=== PATIENT | male | born 1970 ===

== ENCOUNTER 2018-06-21 22:21 | Inpatient (IN) | payer OTHER ==
[~2018-06-21 22:21] MED LIST: ISOVUE-370 76%-LOCM 1 ML ONE
[2018-06-21] MEDS ORDERED: cefTRIAXone\\ROCEPHIN 2 GM VIAL ONE (23:16)
[2018-06-21] MEDS ORDERED: Morphine 4 MG/ML VIAL ONE (23:17)
[2018-06-21 23:44] LABS: #Eosinphils 0.2 thou/uL (0.0-0.7); #Lymphocytes 1.6 thou/uL (1.20-3.40); #Neutrophils 5.2 thou/uL (1.40-6.50); %Basophils 0.4 % (0.0-1.0); %Eosinophils 2.1 % (0.0-10.0); %Lymphocytes 19.7 % (21.0-51.0); %Monocytes 12.6 % (0.0-10.0); %Neutrophils 65.2 % (42.0-75.0); Hemoglobin 14.1 g/dL (14.0-18.0); Mean Corpuscular HGB CONC 34.2 g/dL (32.0-36.0); Mean Corpuscular Hemoglobin 31.8 pg (27.0-31.0); Mean Corpuscular Volume 92.8 fL (78.0-98.0); Mean Platelet Volume 7.6 fL (7.4-10.4); Platelet Count 235 thou/uL (130-400); RBC Distribution Width 11.2 % (11.5-14.5); Red Blood Cell (RBC) Count 4.45 mill/uL (4.70-6.10)
--- NOTE | 2018-06-22 00:04 | CT ---
CT LEFT LEG WITH IV CONTRAST 06/21/18 HISTORY: Left leg pain. Fever. Abscess. FINDINGS: No comparison. Osseous structures are within normal limits. Arterial structures intact without acute hemorrhage. Brandin ng the medial aspect of the upper left thigh, at and just below the level of the scrotum, a small she et-like very thin fluid collection lies immediately superficial to the adductor musculature. It exten ds over a length of 6.1 cm. It measures up to 5.7 cm in width and 1.0 cm in depth. A few very small p ockets of gas are present. The underlying muscles are not involved. IMPRESSION: Very thin sheet-like collection of fluid and tiny pockets of gas along the medial aspect of the upper left thigh. This may represent a resolving area of abscess. No tense fluid collection is remaining. No evidence of involvement of the underlying musculature. POS: [facility]
[2018-06-22 00:05] LABS: ALT (SGPT) 11 U/L (8-55); AST (SGOT) 9 U/L (5-34); Albumin 3.8 g/dL (3.5-5.0); Alkaline Phosphatase 97 U/L (40-150); Anion Gap 18 mmol/L (10-20); BUN (Urea Nitrogen) 13 mg/dL (8.9-20.6); Bilirubin, Total 1.2 mg/dL (0.2-1.2); Calc. Creatinine Clearance 0 mL/min (70-130); Calcium 9.2 mg/dL (7.8-10.44); Carbon Dioxide 16 mmol/L (22-29); Chloride 106 mmol/L (98-107); Estimated GFR-MDRD 84; Globulin 3.1 g/dL (2.4-3.5); Glucose 278 mg/dL (70-105); Protein, Total 6.9 g/dL (6.0-8.3); Sodium 136 mmol/L (136-145)
[2018-06-22 00:42] LABS: Bilirubin Negative (Negative); Blood, Urine Negative (Negative); Clarity CLEAR (Clear); Glucose, Urine (Dipstick) >=1000 mg/dL (Negative); Leukocyte Negative (Negative); Nitrite Negative (Negative); Protein, Urine (Dipstick) 30 mg/dL (Neg-Trace); Urobilinogen 0.2 mg/dL (0.2-1.0); pH, Urine 5.5 (5.0-9.0)
[2018-06-22 00:45] LABS: Bacteria/HPF None Seen HPF (None Seen); Hyaline Casts/LPF 0-3 HYALINE CAST LPF (0-3 Hyaline); Pathc Cast-AUWi Flag 0.14 (0-2.49); Squamous Epithelial None Seen HPF (0-3); WBC/HPF None Seen HPF (0-3)
[2018-06-22 00:58] LABS: Specific Gravity, Urine 1.046 (1.002-1.036)
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
[2018-06-22] MEDS ORDERED: Fentanyl 100 MCG/2 ML VIAL ONE ×3 (03:58→05:31)
[2018-06-22] MEDS ORDERED: Midazolam HCl 2 mg/2 ml Vial ONE (03:58)
[2018-06-22] MEDS ORDERED: hydrALAZINE 20 MG/ML VIAL SLOW IVP PRN (05:03)
[2018-06-22] MEDS ORDERED: Dextrose 50% Abboject 50 ML SYRINGE SLOW IVP PRN (05:03)
[2018-06-22] MEDS ORDERED: Morphine 4 MG/ML Carpuject SLOW IVP PRN (05:03)
[2018-06-22] MEDS ORDERED: Dextrose 5% in Water 1,000 ML IV PRN (05:03)
[2018-06-22] MEDS ORDERED: Promethazine HCl 25 MG/ML VIAL IM PRN ×2 (05:03→05:13)
[2018-06-22] MEDS ORDERED: Ondansetron HCl/PF 4 MG/2 ML Vial IVP PRN ×2 (05:03→05:13)
[2018-06-22] MEDS ORDERED: HYDROcodone/Acetaminophen 10/325 mg Tablet PO PRN (05:03)
[2018-06-22] MEDS ORDERED: Promethazine HCl 25 MG/ML VIAL SLOW IVP PRN (05:13)
--- NOTE | 2018-06-22 05:21 | OP ---
PREOPERATIVE DIAGNOSIS: Abscess, upper and inner left thigh. SURGEON: Balbir Do MD PROCEDURE PERFORMED: Wide debridement, incision and drainage. INDICATIONS: This is a 48-year-old male with a 5-day history of rapidly progressive infection of the upper and inner left thigh. He has been on antibiotics for a couple of days. Continue to progress. FINDINGS: Necrotizing fasciitis with a 15 x 6 x 3 cm area of debrided skin, subcutaneous, and fascia from the upper and inner left thigh just inferior or distal to the groin crease. PROCEDURE IN DETAIL: After informed consent was obtained, the patient was taken to the operating mario m and given general endotracheal anesthesia. He was placed in the supine frogleg position. His groi n and upper leg were prepped and draped in usual fashion. An elliptical incision was performed to ex cise fluctuant area including an open area in the posterior aspect of the upper inner thigh. This wa s a 15 x 6 x 3 cm excision of subcutaneous, skin, and fascia. There were multiple pockets of purulen t fluid which was sent for culture. The necrotic fascia was excised. Hemostasis achieved utilizing electrocautery and [id number] of 3-0 Vicryl suture. The wound was irrigated with pulse irrigat or and 3 liters of saline. Hemostasis was assured. The wound was packed open with Betadine gauze, c overed with sterile dry gauze. Patient tolerated the procedure well and was transferred to recovery in fair condition.
[2018-06-22 06:41] VITALS: BMI 29.9
[2018-06-22] MEDS: Piperacillin/Tazobactam 3.375 GM in Sodium Chloride 0.9% 100 ML IVPB SCH ×4 (06:59→23:44)
[2018-06-22 07:01] LABS: Vancomycin, Peak 5.7 ug/mL (20.0-40.0)
[2018-06-22] MEDS: Ketorolac Tromethamine 30 MG/ML VIAL IVP SCH ×4 (07:05→23:45)
[2018-06-22] MEDS: Lactated Ringer's 1,000 ML IV SCH ×2 (07:06→16:24)
[2018-06-22] MEDS: HYDROcodone/Acetaminophen 10/325 mg Tablet PO PRN ×3 (07:11→19:42)
[2018-06-22] MEDS: Famotidine/PF 20 mg/2ml Vial SLOW IVP SCH ×2 (08:29→19:43)
[2018-06-22] MEDS: Vancomycin HCl 1.5 GM in Sodium Chloride 0.9% 250 ML 300 ML IVPB SCH ×2 (08:29→16:24)
[2018-06-22] MEDS ORDERED: Heparin 1,000 UNITS/ML VIAL ONE (09:00)
[2018-06-22] MEDS: Insulin Regular 300 UNITS/3 ML VIAL SC PRN ×3 (13:23→20:51)
[2018-06-22] MEDS ORDERED: PROPOFOL 200 MG/20 ML VIAL ONE (15:14)
[2018-06-22] MEDS ORDERED: Lidocaine 1% PF 5 ML VIAL ONE (15:14)
[2018-06-22] MEDS ORDERED: Succinylcholine Chloride 20 MG/ML 10 ml SYRINGE FS ONE (15:14)
[2018-06-22 23:22] LABS: Vancomycin, Trough 10.5 ug/mL
[2018-06-22] MEDS: Vancomycin HCl 1.75 GM in Sodium Chloride 0.9% 500 ML IVPB SCH (23:45)
[2018-06-23] MEDS: Lactated Ringer's 1,000 ML IV SCH ×3 (00:43→15:24)
[2018-06-23 04:13] LABS: #Eosinphils 0.6 thou/uL (0.0-0.7); #Lymphocytes 1.6 thou/uL (1.20-3.40); #Monocytes 0.8 thou/uL (0.11-0.59); #Neutrophils 3.6 thou/uL (1.40-6.50); %Basophils 0.4 % (0.0-1.0); %Eosinophils 9.3 % (0.0-10.0); %Monocytes 11.5 % (0.0-10.0); %Neutrophils 54.7 % (42.0-75.0); Mean Corpuscular HGB CONC 35.3 g/dL (32.0-36.0); Mean Corpuscular Hemoglobin 32.8 pg (27.0-31.0); Mean Corpuscular Volume 92.7 fL (78.0-98.0); Mean Platelet Volume 7.3 fL (7.4-10.4); Platelet Count 208 thou/uL (130-400); Red Blood Cell (RBC) Count 3.68 mill/uL (4.70-6.10); White Blood Cell (WBC) Count 6.5 thou/uL (4.8-10.8)
[2018-06-23 04:25] LABS: Anion Gap 11 mmol/L (10-20); BUN (Urea Nitrogen) 6 mg/dL (8.9-20.6); Calc. Creatinine Clearance 180 mL/min (70-130); Calcium 8.4 mg/dL (7.8-10.44); Carbon Dioxide 23 mmol/L (22-29); Chloride 107 mmol/L (98-107); Estimated GFR-MDRD Greater than 90; Glucose 208 mg/dL (70-105); Potassium 3.7 mmol/L (3.5-5.1); Sodium 137 mmol/L (136-145)
[2018-06-23] MEDS: Ketorolac Tromethamine 30 MG/ML VIAL IVP SCH ×4 (05:16→23:31)
[2018-06-23] MEDS: Piperacillin/Tazobactam 3.375 GM in Sodium Chloride 0.9% 100 ML IVPB SCH ×4 (05:16→23:32)
[2018-06-23] MEDS: HYDROcodone/Acetaminophen 10/325 mg Tablet PO PRN ×4 (05:20→20:21)
[2018-06-23] MEDS: Insulin Regular 300 UNITS/3 ML VIAL SC PRN ×4 (05:25→22:00)
[2018-06-23] MEDS: Vancomycin HCl 1.75 GM in Sodium Chloride 0.9% 500 ML IVPB SCH ×3 (07:28→23:32)
[2018-06-23] MEDS: Famotidine 20 MG TAB PO SCH ×2 (07:32→20:20)
--- NOTE | 2018-06-23 15:23 | PRG ---
DATE OF SERVICE: 06/23/2018 SUBJECTIVE: The patient is feeling better today, less pain. OBJECTIVE: VITAL SIGNS: Temperature is 97.8, pulse 89, blood pressure 127/71. GENERAL: He looks good. SKIN: The cellulitis is much improved. There is still some faint redness there. Wound looks clean. ASSESSMENT: Doing well. PLAN: Make sure he is on Lovenox, continue IV antibiotics, wound care. When this cellulitis is pret ty well gone, he could be transferred.
[2018-06-23] MEDS: Enoxaparin Sodium 40 MG/0.4 ML SYRINGE SC SCH (20:20)
[2018-06-24 00:40] LABS: Vancomycin, Trough 14.8 ug/mL
[2018-06-24] MEDS: HYDROcodone/Acetaminophen 10/325 mg Tablet PO PRN ×3 (00:44→21:24)
[2018-06-24] MEDS: Piperacillin/Tazobactam 3.375 GM in Sodium Chloride 0.9% 100 ML IVPB SCH ×4 (05:08→23:30)
[2018-06-24] MEDS: Ketorolac Tromethamine 30 MG/ML VIAL IVP SCH ×4 (05:08→23:33)
[2018-06-24] MEDS: Insulin Regular 300 UNITS/3 ML VIAL SC PRN ×4 (06:43→22:14)
[2018-06-24] MEDS: Famotidine 20 MG TAB PO SCH ×2 (08:17→21:17)
[2018-06-24] MEDS: Vancomycin HCl 1.75 GM in Sodium Chloride 0.9% 500 ML IVPB SCH ×3 (08:17→23:31)
[2018-06-24] MEDS: Lactated Ringer's 1,000 ML IV SCH ×2 (08:17→17:13)
--- NOTE | 2018-06-24 09:41 | PRG ---
DATE OF SERVICE: 06/24/2018 He is doing well. He feels minimal pain. PHYSICAL EXAMINATION: VITAL SIGNS: Temperature 97.5, pulse 91, blood pressure 131/84. The cellulitis is almost resolved. The wound is clean. ASSESSMENT: Doing well. PLAN: Work to get him back to the [facility] care.
[2018-06-24] MEDS: Enoxaparin Sodium 40 MG/0.4 ML SYRINGE SC SCH (21:16)
[2018-06-25] MEDS: Lactated Ringer's 1,000 ML IV SCH ×3 (03:36→21:01)
[2018-06-25] MEDS: HYDROcodone/Acetaminophen 10/325 mg Tablet PO PRN ×3 (04:13→21:00)
[2018-06-25] MEDS: Piperacillin/Tazobactam 3.375 GM in Sodium Chloride 0.9% 100 ML IVPB SCH ×2 (05:24→11:27)
[2018-06-25] MEDS: Ketorolac Tromethamine 30 MG/ML VIAL IVP SCH (05:26)
[2018-06-25] MEDS: Famotidine 20 MG TAB PO SCH ×2 (09:41→21:00)
[2018-06-25] MEDS: Vancomycin HCl 1.75 GM in Sodium Chloride 0.9% 500 ML IVPB SCH (09:41)
[2018-06-25] MEDS: Insulin Regular 300 UNITS/3 ML VIAL SC PRN ×2 (12:46→18:03)
[2018-06-25] MEDS ORDERED: Meropenem 1 GM in Sodium Chloride 0.9% 100 ML IVPB SCH (14:00)
--- NOTE | 2018-06-25 14:16 | PRG ---
DATE OF SERVICE: 06/25/2018 SUBJECTIVE: Patient feels better, still sore in the wound area. OBJECTIVE: His temperature is 97.9, pulse 74, blood pressure 125/80. He looks good. Cellulitis is pretty well resolved. Wound is clean. ASSESSMENT: Doing well. PLAN: Transfer when accepted.
--- NOTE | 2018-06-25 16:04 | SPC ---
SONOGRAPHIC GUIDED LEFT UPPER EXTREMITY PICC PLACEMENT: HISTORY: Stye infection. FINDINGS: After explaining the procedure and answering all questions, the left upper extremity was prepped and draped in the usual sterile fashion. Sterile technique, buffered local anesthesia, sonographic flaquita nce, and a 22 gauge needle were used to carefully access the left basilic vein. a standard technique was then used to place the tip of a 5 [place] single-lumen PICC so that the tip lies at the level of the superior vena cava. The catheter was flushed and secured externally. The patient tolerated the procedure well and was returned in unchanged condition. FLUOROSCOPY TIME: 0.2 minutes. IMPRESSION: Left upper extremity peripherally inserted central catheter is ready for use. POS: [facility]
[2018-06-25 16:10] LABS: Vancomycin, Trough 19.6 ug/mL
[2018-06-25] MEDS: MEROPENEM 1 GM/50 ML 1 GM in Premix Bag 1 BAG IVPB SCH ×2 (16:44→20:58)
[2018-06-25] MEDS: Enoxaparin Sodium 40 MG/0.4 ML SYRINGE SC SCH (21:05)
[2018-06-26] MEDS: HYDROcodone/Acetaminophen 10/325 mg Tablet PO PRN ×4 (01:14→13:34)
[2018-06-26] MEDS: MEROPENEM 1 GM/50 ML 1 GM in Premix Bag 1 BAG IVPB SCH ×2 (05:37→13:29)
[2018-06-26] MEDS: Lactated Ringer's 1,000 ML IV SCH (05:37)
[2018-06-26] MEDS: Famotidine 20 MG TAB PO SCH (09:01)
[2018-06-26 11:00] VITALS: BP 128/86; TEMP 98.1
[2018-06-26] MEDS: Insulin Regular 300 UNITS/3 ML VIAL SC PRN (11:34)
--- NOTE | 2018-06-26 15:21 | DIS ---
DISCHARGE DIAGNOSIS: Necrotizing fasciitis of the left groin. PROCEDURES DURING ADMISSION: Excision and debridement of left groin down to and including fascia, IV antibiotics. HOSPITAL COURSE: The patient was admitted. He had a large abscess in his left groin with cellulitis to the knee. He was taken to the operating room after given IV antibiotics and excisional debrideme nt was performed that included necrotic fascia. Postoperatively, he was treated with wound care and antibiotics, cellulitis is resolved. His pain is well controlled. He is discharged home, back to [facility] with wet to dries and continued IV antibiotics, meropenem. He will follow up with me in 2 weeks.
== END 2018-06-26 15:00 | DRG 464 ==
LOC: ERS 22:21 → SDC 06-22 02:06 → SURG A 06-22 06:04 → OBSVTOIN 06-22 06:04
PROVIDERS: ADMIT Surgery; ATTEND Surgery
PROC: 0JBM0ZZ Excision of Left Upper Leg Subcutaneous Tissue and Fascia, Open Approach (ICD-10-PCS; principal; 2018-06-22)
PROC: 02HV33Z Insertion of Infusion Device into Superior Vena Cava, Percutaneous Approach (ICD-10-PCS; 2018-06-25)
PROC: B548ZZA Ultrasonography of Superior Vena Cava, Guidance (ICD-10-PCS; 2018-06-25)
DX: M72.6 Necrotizing fasciitis (principal); L02.214 Cutaneous abscess of groin; L02.416 Cutaneous abscess of left lower limb; L03.116 Cellulitis of left lower limb; I10 Essential (primary) hypertension
CPT/HCPCS: 36415; 36416; 36569; 80048; 80053; 80202; 81003; 81015; 85025; 87040; 87070; 87077; 87186; 87205; 88304; 96361; 96365; 96375; C1751; J0696; J1644; J1650; J1815; J1885; J2001; J2185; J2250; J2270; J2543; J2704; J3010; J3370; J7050; S0028